=== PATIENT | female | born 1940 | race American Indian/Alaskan Native ===

== ENCOUNTER 2021-12-24 13:53 | Outpatient (CLI) | payer MEDICARE ==
--- NOTE | 2021-12-24 16:46 | Cat Scan Report ---
CT CHEST WITHOUT CONTRAST INDICATION / CLINICAL INFORMATION: J44.9. COPD. TECHNIQUE: Axial CT images were obtained through the chest without contrast. All CT scans at this [facility] ation are performed using CT dose reduction for ALARA by means of automated exposure control. COMPARISON: None available. FINDINGS: UPPER ABDOMEN: No acute abnormality. SKELETAL SYSTEM: No acute abnormality. HEART: No significant abnormality. CORONARY ARTERY CALCIFICATION: Present -- Moderate. THORACIC AORTA: No acute abnormality. Atherosclerotic calcification is noted. MEDIASTINUM / LEIDA: No significant abnormality. PLEURA: No pleural effusion. No pneumothorax. LUNGS: COPD changes are noted with scattered blebs greatest at the right upper lobe. There is mild br onchiectasis bilaterally. There is a 5 mm left lower lobe solid nodule axial series 2 image 93. There is a 3 mm nodule in the left lower lobe on image 68. ADDITIONAL FINDINGS: None. IMPRESSION: 1. COPD. 2. Multiple incidental pulmonary nodule(s) in the left lower lobe, the larger measuring 5 mm with melissa id characteristics. - Recommendation according to Fleischner Society 2017 Guidelines: Low Risk Patient: No routine follow -up; High Risk Patient: Optional CT at 12 months. Signer Name: Juan Kent MD Signed: 12/24/2021 4:41 PM Workstation Name: [id number]
== END 2021-12-24 13:54 | disposition home or self-care (01) ==
LOC: CT 13:53
PROVIDERS: ATTEND Family Medicine
DX: J44.9 Chronic obstructive pulmonary disease, unspecified (principal); R91.1 Solitary pulmonary nodule; J47.9 Bronchiectasis, uncomplicated; I25.10 Atherosclerotic heart disease of native coronary artery without angina pectoris
CPT/HCPCS: 71250

== ENCOUNTER 2022-05-21 06:58 | Day surgery (SDC) | payer MEDICARE ==
[2022-05-21] MEDS ORDERED: SODIUM CHLORIDE 0.9% 1000 ML 1,000 ML IV SCH (07:00)
--- NOTE | 2022-05-21 07:31 | Anesthesia Consultation ---
Anesthesia Consult and Med Hx Date of service: 05/21/22 - Airway Anesthetic Teeth Evaluation: Edentulous ROM Head & Neck: Adequate Mental/Hyoid Distance: Adequate Mallampati Class: Class I - Pulmonary Exam CTA: Yes - Cardiac Exam Cardiac Exam: RRR - Pre-Operative Health Status Proposed Anesthetic Plan: General, Epidural, MAC, TIVA - Pulmonary Hx Smoking: Yes (quit 2 months ago ) SOB: Yes ([place]) COPD: Yes (ON PRN O2) Home Oxygen Therapy: Yes Hx Pneumonia: Yes (hospitalized January 2022; yearly for the past 3-4 years) - Cardiovascular System Hx Hypertension: Yes Hx Coronary Artery Disease: Yes Hx Heart Attack/AMI: No Hx Angina: No Hx Percutaneous Transluminal Coronary Angioplasty (PTCA): No Hx Cardia Arrhythmia: No Hx Pacemaker: No Hx Internal Defibrillator: No Hx Valvular Heart Disease: No Hx Heart Murmur: No Hx Peripheral Vascular Disease: No - Central Nervous System Hx Neuromuscular Disorder: No Hx Seizures: No CVA: No Hx Back Pain: No Hx Psychiatric Problems: No - Gastrointestinal Hx Ulcer: No Hx Gastroesophageal Reflux Disease: No - Endocrine Hx Renal Disease: Yes 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
--- NOTE | 2022-05-21 07:37 | Anesthesia Day of Surgery ---
Anesthesia Day of Surgery - Day of Surgery Patient Examined: Yes Patient H&P Reviewed: Yes Patient is NPO: Yes Beta Blockers: Yes Cardiac Clearance: Yes Pulmonary Clearance: No Heath's Test: N/A
[2022-05-21] MEDS ORDERED: propofoL 200 MG/20 ML VIAL IV ONE (07:58)
[2022-05-21] MEDS ORDERED: ALBUTEROL 2.5 MG/3 ML NEBU IH ONE (08:06)
[2022-05-21] MEDS ORDERED: ONDANSETRON 4 MG/2 ML INJ ONE (09:11)
--- NOTE | 2022-05-21 09:25 | Short Stay Summary ---
Short Stay Documentation Date of service: 05/21/22 Narrative H&P: The patient presents for diagnostic EGD and colonoscopy for unexplained iron deficiency anemia presumed due to chronic GI blood loss. - History Past Medical History: COPD, other (Monoclonal gammopathy, NIDDM, COPD) Past Surgical History: No surgical history Social history: no significant social history, smoking - Allergies and Medications Current Medications: Allergies Sulfa (Sulfonamide Antibiotics) Allergy (Verified 05/20/22 15:49) Unknown Home Medications Medication Instructions Recorded Confirmed Last Taken Type Anoro Ellipta 62.5-25 Mcg INH 05/21/22 Unknown History Aspirin 05/21/22 Unknown History AtorvaSTATin [Lipitor] 05/21/22 Unknown History Ethambutol [Myambutol] 05/21/22 Unknown History Flonase 05/21/22 Unknown History Furosemide [Lasix TAB] 05/21/22 Unknown History Gabapentin 05/21/22 Unknown History Metoprolol [Lopressor TAB] 05/21/22 Unknown History Omeprazole 05/21/22 Unknown History Sertraline [Zoloft] 05/21/22 05/21/22 Unknown History Symbicort 80-4.5 Mcg Inhaler 05/21/22 Unknown History Terbinafine HCl [LamiSIL] 05/21/22 Unknown History Trelegy Ellipta 100-62.5-25 05/21/22 Unknown History amLODIPine 05/21/22 Unknown History glipiZIDE [Glucotrol] 05/21/22 Unknown History rifAMPin 05/21/22 Unknown History Active Medications Sodium Chloride (Nacl 0.9% 1000 Ml) 1,000 mls @ 50 mls/hr IV DIRECT FIDE - Physical exam General appearance: no acute distress, well-nourished Integumentary: no rash, no growths, no abnormal pigmentation HEENT: Atraumatic, PERRLA, EOMI, Mucous membr. moist/pink Lungs: Clear to auscultation, Normal air movement Breasts: deferred Heart: Regular rate, Normal S1, Normal S2, No murmurs Gastrointestinal: normoactive bowel sounds, no tenderness, no distended, no masses, no guarding, no organomegaly Female Genitourinary: deferred Rectal Exam: normal exam-external/orifice, normal rectal tone, no mass Extremities: no ischemia, pulses intact, pulses symmetrical, No edema, normal temperature, normal color, Full ROM Neurological: Normal gait, Normal speech, Strength at 5/5 X4 ext, Normal tone, Sensation intact, Cranial nerves 3-12 NL - Brief post op/procedure progress note Date of procedure: 05/21/22 Procedure: see dictations Estimated blood loss: minimal Pathology: list (antral biopsies for h pylori) Specimen disposition: to lab Condition: stable - Disposition Condition at discharge: Good Disposition: 01 HOME / SELF CARE / HOMELESS - Discharge Diagnoses (1) Iron deficiency anemia due to chronic blood loss Status: Acute (2) Monoclonal gammopathy Status: Acute (3) COPD (chronic obstructive pulmonary disease) Status: Acute Short Stay Discharge Plan Activity: other (no driving for 24 hours) Weight Bearing Status: Weight Bear as Tolerated Diet: diabetic Follow up with: RUTH FELIZ MD [Primary Care Provider] - 7 Days
--- NOTE | 2022-05-21 09:29 | Operative Report ---
Operative Report Operative Report: Date of procedure: 05/21/2022 Preprocedure diagnosis: Iron deficiency anemia Post procedure diagnoses: Extensive sigmoid diverticulosis, fixed angulations precluding successful colonoscopy to the cecum Procedure: Flexible sigmoidoscopy to 40 cm Endoscopist: Kentrell Mares M.D. Estimated blood loss: 0 Medications: Propofol per anesthesia After careful discussion of the nature and purpose of the procedure, risks, benefits, and alternatives consent was obtained. The patient was placed in the left lateral decubitus position and medicated per anesthesia-see separate records for details. A rectal exam was performed. Sphincter tone was normal and no masses were palpable. The tip of the Olympus video scope was passed transanally and advanced under continuous direct vision to 40 cm. Colonoscopy was planned however there was fixed angulation and extensive diverticulosis of the sigmoid colon precluding successful advancement to the cecum. The Olympus upper endoscope was used subsequently but was likewise unsuccessful in safely traversing the sigmoid colon due to fixed angulations and extensive diverticula in the area. No stricture was evident there was no mass lesion. Retroflexed view of the rectum was within normal limits. Colon preparation was good. The procedure was well-tolerated overall. Conclusions: Extensive diverticulosis and fixed angulations of the sigmoid colon precluding advancement to the cecum. Diverticulosis. Plan: Consideration of air-contrast barium enema versus noninvasive testing with a Cologuard study in light of her age and COPD. The patient will call the office for discussion over the next week. Electronically signing: Kentrell Mares M.D.
--- NOTE | 2022-05-21 09:31 | Operative Report ---
Operative Report Operative Report: Date of procedure: 05/21/2022 Procedure: Esophagogastroduodenoscopy with antral biopsies for H. pylori Preprocedure diagnosis: Iron deficiency anemia Post procedure diagnosis: Moderately large hiatus hernia, erosive antral gastritis. Endoscopist: Dr. Mares Anesthesia: Monitored anesthesia care per anesthesia department Medications: Propofol per anesthesia. Estimated blood loss: Minimal After careful discussion of the nature and purpose of the procedure as well as details the technique risks benefits and alternatives consent was obtained. The patient was placed in the left lateral decubitus position and medicated per anesthesia. The tip of the Olympus video scope was passed per orum under direct vision into the esophagus and advanced into the stomach and descending duodenum. The descending duodenum the duodenal bulb and pylorus were symmetrical and normal. The scope was withdrawn into the stomach and the stomach then gently insufflated with air. The antrum revealed scattered punctate erosions. Biopsies were taken for H. pylori. The stomach was further insufflated and the scope was then retroflexed and partially withdrawn. The cardia, fundus, and body of the stomach were within normal limits and easily distensible.The scope was then withdrawn in the forward position. A moderately large hiatus hernia was present. The esophagogastric junction was at 34 cm. The esophageal body was normal throughout. The procedure was was well tolerated and the patient was observed in recovery. Impressions: Moderately large hiatus hernia which may be responsible for iron deficiency anemia. Erosive antral gastritis, rule out Helicobacter pylori. No evidence of neoplasia or ulcer disease Plan: Await pathology. The patient will call the office in 1 week for further discussion. Electronically signed: Kentrell Mares MD
[2022-05-21 09:48] VITALS: BP 148/50
--- NOTE | 2022-05-21 09:53 | Post Anesthesia Evaluation ---
- Post Anesthesia Evaluation Patient Participated: Yes Airway Patent: Yes Stable Respiratory Function: Yes Nausea/Vomiting: No Temp > 96.8F: Yes Pain Manageable: Yes Adequeate Hydration: Yes Anesthesia Complications: No
== END 2022-05-21 10:05 | disposition home or self-care (01) ==
LOC: GIO 06:58
PROVIDERS: ATTEND Internal Medicine Gastroenterology
DX: D50.0 Iron deficiency anemia secondary to blood loss (chronic) (principal); D47.2 Monoclonal gammopathy; K44.9 Diaphragmatic hernia without obstruction or gangrene; K29.70 Gastritis, unspecified, without bleeding; K57.30 Diverticulosis of large intestine without perforation or abscess without bleeding; J44.9 Chronic obstructive pulmonary disease, unspecified; I25.10 Atherosclerotic heart disease of native coronary artery without angina pectoris; E78.00 Pure hypercholesterolemia, unspecified; I12.9 Hypertensive chronic kidney disease with stage 1 through stage 4 chronic kidney disease, or unspecified chronic kidney disease; E11.22 Type 2 diabetes mellitus with diabetic chronic kidney disease; N18.4 Chronic kidney disease, stage 4 (severe); E03.9 Hypothyroidism, unspecified; F17.210 Nicotine dependence, cigarettes, uncomplicated; Z88.2 Allergy status to sulfonamides; Z79.899 Other long term (current) drug therapy; Z79.82 Long term (current) use of aspirin; Z87.01 Personal history of pneumonia (recurrent); Z98.890 Other specified postprocedural states
CPT/HCPCS: 43239; 45378; 82962; 88305; 88342; J2405; J2704; J7030